=== PATIENT | male | born 1950 | race Caucasian/White ===

== ENCOUNTER 2016-11-03 10:22 | Observation (INO) | payer BC ==
[2016-10-26 11:49] LABS: HEMOGLOBIN 13.7 g/dL (13.6-17.8)
[2016-10-26 12:03] LABS: BUN (BLOOD UREA NITROGEN) 15 MG/DL (6-23); CALCIUM, SERUM 8.9 MG/DL (8.5-10.4); CHLORIDE, SERUM 106 MMOL/L (96-112); CO2 (CARBON DIOXIDE) 29 MMOL/L (24-34); CREATININE 1.04 MG/DL (0.70-1.30); GFR AFRICAN AMERICAN 86 ML/MIN (>=60); GFR NON AFRICAN AMERICAN 74 ML/MIN (>=60); GLUCOSE, SERUM 128 MG/DL (60-99); POTASSIUM, SERUM 4.4 MMOL/L (3.5-5.3); SODIUM, SERUM 142 MMOL/L (135-148)
--- NOTE | ~2016-11-03 | CN ---
Consultation Report [facility] [address] [place]. [address] NAME: MAGDIEL JAMES : 50 STATUS : ADM Richelle PAT#: [id number] AGE: 66 ADM/REG DATE : 11/03/16 MR#: [id number] REPORT SERV DATE: 11/03/16 DICTATED BY: LEXY STEELE DATE: 11/03/16 REPORT STATUS : Draft TRANSCRIBED BY: MODL DATE: 11/03/16 CARDIOLOGY CONSULTATION DATE OF CONSULTATION: REASON FOR CONSULTATION: Intraoperative EKG changes. HISTORY OF PRESENT ILLNESS: The patient is a 66-year-old male without known coronary artery disease, who today underwent orthopedic spine surgery with minimally invasive multilevel laminectomy of the lumbosacral spine. Intraoperatively at approximately 1341 hours, the patient developed ST-segment elevation and what is listed as lead II of his telemetry monitoring. No complications during the procedure. On return to the postanesthesia care unit, the patient had a normal telemetry and EKG. He subsequently developed transient ST- segment elevation at 1534 hours again in similar lead II configuration. No ST elevation in the other monitor lead. By 1602 hours, ST-segment changes had resolved. The patient was recovering from general anesthetic, was sluggish, but responsive and denied chest pain. The patient currently is pain-free. A 12-lead EKG is unremarkable. Cardiac enzymes including troponin and CK-MB are negative postoperatively. As the patient remains significantly sedated, majority of history is taken from the medical record and from interview with the patient's by telephone. PAST MEDICAL HISTORY: 1. Degenerative disk disease with chronic pain. 2. Hypertension. 3. Osteoarthritis. 4. History of cardiac murmur. ALLERGIES: AMLODIPINE, CRESTOR, HYDROCHLOROTHIAZIDE, METHYLPREDNISOLONE, METOPROLOL, PRAVASTATIN, REQUIP, SIMVASTATIN - REACTIONS TO THESE MEDICATIONS ARE UNKNOWN. PAST SURGICAL HISTORY: Previous lumbar laminectomy of L4-L5 in 2012, bowel resection, previous umbilical hernia, previous treatment for deviated septum, previous orthopedic surgery of the right shoulder, previous ventral hernia repair, and previous reversal of colostomy. FAMILY HISTORY: Notable for cardiovascular disease and myocardial infarction in multiple relatives in older age. SOCIAL HISTORY: The patient medically disabled due to chronic pain syndrome. No past history of tobacco or illicit drug use. REVIEW OF SYSTEMS: Unobtainable at the time of consultation. Previously, negative per review of admission Consultation Report [facility] [address] [place]. [address] NAME: MAGDIEL JAMES : 50 STATUS : ADM Richelle PAT#: [id number] AGE: 66 ADM/REG DATE : 11/03/16 MR#: [id number] REPORT SERV DATE: 11/03/16 DICTATED BY: LEXY STEELE DATE: 11/03/16 REPORT STATUS : Draft TRANSCRIBED BY: GUILLAUME DATE: 11/03/16 history and physical except for back pain complaints. PHYSICAL EXAMINATION: VITALS: Blood pressure 128/74, pulse 76, respirations 16 and unlabored, saturating 99% on 2 liters nasal cannula. Weight 168 pounds . GENERAL: Elderly male in no acute distress, somnolent, arousable, able to nod to simple questions. Unable to answer complex questions secondary to sedation. HEENT: Normal. NECK: Supple, no JVD or bruit, normal carotid upstroke bilaterally, no thyromegaly. LUNGS: Clear to auscultation and percussion. No wheezes, rales or rhonchi. No use of accessory muscles. CARDIOLOGY: Regular rhythm, normal S1, S2, no thrill, no murmur, rubs or gallops, normal PMI. ABDOMEN: Bowel sounds positive, soft, nontender, and nondistended. No masses or aortic bruits. No hepatosplenomegaly or hepatojugular reflux. EXTREMITIES: No edema. Normal pulses. No clubbing or cyanosis. SKIN: Warm and dry, no significant rash. NEUROLOGIC: Alert and oriented x 3. Appropriate mood. DIAGNOSTIC DATA: EKG: Postoperative EKG, sinus rhythm, normal EKG. Telemetry - EKG changes with times as described above in the history of present illness. Laboratories: Unremarkable with normal CK-MB and troponin postoperatively. Data: Echocardiogram report on 10/15/2016 normal echocardiogram, described as a "suboptimal quality study." Ejection fraction normal. No regional wall motion abnormalities described. IMPRESSION: Intermittent transient ST-segment elevation in a single lead noted intraoperatively and in the postanesthesia care unit. The patient is asymptomatic at this time. At the time of ST elevation in the postanesthesia care unit, the patient denied chest pain. Initial cardiac enzymes negative. Multiple cardiac risk factors. We will arrange for serial cardiac enzymes. The patient will be admitted to a cardiac telemetry floor for continuous telemetry observation and monitoring. A recurrent telemetry changes with EKG deviation, electrocardiogram will be performed emergently. No plan for anticoagulation at this time due to surgery only several hours ago involving the lumbosacral spine. Previous intolerance to beta-ced, specifically metoprolol. Unclear what this is. At this time, the patient has no significant hypertension or tachycardia. We will defer adding beta- ced for now. Initiation of aspirin if acceptable with Orthopedic/Spine Surgery. Thank you for the opportunity to see the patient in consultation. We will continue to follow the patient with you. Consultation Report [address] [place]. [address] NAME: MAGDIEL JAMES : 50 STATUS : ADM Richelle PAT#: [id number] AGE: 66 ADM/REG DATE : 11/03/16 MR#: [id number] REPORT SERV DATE: 11/03/16 DICTATED BY: LEXY STEELE DATE: 11/03/16 REPORT STATUS : Draft TRANSCRIBED BY: MODGin DATE: 11/03/16 CSL/GUILLAUME Erick Steele M.D. / [id number] CC: Olegario Stone II, ALEX G
--- NOTE | ~2016-11-03 | OP ---
Record Of Operation [facility] [address] [place]. [address] NAME: MAGDIEL JAMES : 50 STATUS : DIS Richelle PAT#: [id number] AGE: 66 ADM/REG DATE : 11/03/16 MR#: [id number] REPORT SERV DATE: 11/05/16 DICTATED BY: KALPANA CRUZ II DATE: 11/05/16 REPORT STATUS : Draft TRANSCRIBED BY: MODL DATE: 11/05/16 DATE OF PROCEDURE: 11/03/2016 PREOPERATIVE DIAGNOSES: 1. Left lower extremity radiculopathy. 2. L1-2, L2-3 stenosis with significant spondylosis and discogenic back pain. 3. Adjacent segment degeneration with history of successful pain relief with previous decompression fusion by Dr. Neumann. 4. Low back pain. POSTOPERATIVE DIAGNOSES: 1. Left lower extremity radiculopathy. 2. L1-2, L2-3 stenosis with significant spondylosis and discogenic back pain. 3. Adjacent segment degeneration with history of successful pain relief with previous decompression fusion by Dr. Neumann. 4. Low back pain. PROCEDURE: 1. Laminectomy, L1-L2. 2. Revision laminectomy, L2-L3. 3. Use of the microscope and stereotactic spinal imaging. SURGEON: Dr. Kalpana Cruz. FLUIDS: 950 mL LR. ESTIMATED BLOOD LOSS: 30 mL. DRAINS: One drain. COMPLICATIONS: None. PREOPERATIVE HISTORY: This is a friendly 66-year-old gentleman, who did well following his surgery several years ago with Dr. Neumann. He had a L2-3 decompression and fusion with facet screws placed through the facets of L2-L3 into the L3 pedicles. He is now having adjacent segment degeneration with significant stenosis at L1-2 and also degenerative disk disease at L3-4. We discussed the pros and cons of surgery. Given his significant back pain and leg pain, we discussed facetectomy and fusion. This was denied by his insurance. The family and patient were asked if they wished for us to appeal the surgery or proceed with what had been approved, which was the laminectomy. The patient's family said that the leg pain was severe and they wished to avoid the prolonged appeal process and simply go with the laminectomy in hopes that it would adequately decrease the leg pain and then revisit the idea of fusion as needed. DESCRIPTION OF PROCEDURE: After informed consent was obtained, the patient was brought to the operating room at his request and general anesthesia achieved. He was placed in the Record Of Operation [address] [address] NAME: MAGDIEL JAMES : 50 STATUS : DIS Richelle PAT#: [id number] AGE: 66 ADM/REG DATE : 11/03/16 MR#: [id number] REPORT SERV DATE: 11/05/16 DICTATED BY: KALPANA CRUZ II DATE: 11/05/16 REPORT STATUS : Draft TRANSCRIBED BY: GUILLAUME DATE: 11/05/16 prone position. The back was prepped and draped in a sterile fashion. The stereotactic pin was placed into the right iliac crest. The intraoperative CT scan completed. The minimally invasive incision was now performed and stereotactic guidance used to assist with placement of the quadrant retractor at L1-2 and L2-3. The microscope was brought into place and under microscopic visualization, the laminectomy was performed at L1-L2. We were able to resect approximately 50% of the facet joint at L1-2. We also then removed the central stenosis with removal of the ligamentum flavum. Care was taken not to over resect the left L1-L2 joint, but to adequately decompress the L2 nerve root. The ligamentum flavum and the arthritic facet appeared to be compressing both the sac and the L2 nerve root. At this point, the nerve roots were adequately decompressed. Next, we worked down to the L2-L3 region. There was some degree of recurrent stenosis at this level. This appeared to be compressing the L3 nerve root as well. We then removed portions of this facet to adequately decompress the canal and the lateral recess. At this point, the facet screw was noted to be partially loose. This facet did not appear to be fully fused. At this point, I did not feel that revision fusion was necessary at this point. I overall feel that the patient will likely want to revisit the concept and the appeals process for fusion to help decrease his back pain and also to potentially help leg pain if it redevelops. At this point, irrigation was performed and a drain placed since we were planning on keeping him overnight for observation. At this point, the standard closure was performed. The patient was extubated and transferred to PACU in stable condition. Interestingly, Dr. Steele called me shortly after he was transferred to the recovery room. There apparently had been some ST elevation during the surgery. I was not made aware of this, but apparently the patient was stable, but it was simply noted. For completeness sake, it appears that Cardiology was consult, which was completely appropriate, and he and I discussed the plan for intervention from a cardiac standpoint as needed. His ST-elevation had essentially resolved itself in the recovery room, but he again agreed with overnight observation and telemetry. YASMEEN/GUILLUAME Kalpana Cruz II, M.D. / [id number] CC: Olegario Stone II, ALEX G RICKEY HUTCHESON, MD
[~2016-11-03 10:22] MED LIST: CLONAZEPAM PO; LOTE40 PO; MOTRIN IB200 MG PO; OXYCODONE PO
[2016-11-03 16:11] LABS: CPK 106 U/L (0-200); TROPONIN I <0.02 NG/ML (<0.05)
[2016-11-03 16:12] LABS: CK-MB 1.8 NG/ML
[2016-11-04 04:52] LABS: BUN (BLOOD UREA NITROGEN) 18 MG/DL (6-23); CALCIUM, SERUM 8.9 MG/DL (8.5-10.4); CHLORIDE, SERUM 101 MMOL/L (96-112); CO2 (CARBON DIOXIDE) 26 MMOL/L (24-34); CREATININE 1.09 MG/DL (0.70-1.30); GFR AFRICAN AMERICAN 82 ML/MIN (>=60); GFR NON AFRICAN AMERICAN 70 ML/MIN (>=60); GLUCOSE, SERUM 148 MG/DL (60-99); POTASSIUM, SERUM 4.4 MMOL/L (3.5-5.3); SODIUM, SERUM 135 MMOL/L (135-148); TROPONIN I <0.02 NG/ML (<0.05)
[2016-11-04] MEDS ORDERED: MSCONTIN PO (14:29)
[2016-11-04] MEDS ORDERED: V2 PO (14:30)
[2017-01-04] MEDS ORDERED: KLONO2 PO (14:18)
[2017-01-04] MEDS ORDERED: KLONO1 PO (14:19)
[2017-01-09] MEDS ORDERED: V5 PO (12:24)
[2017-01-09] MEDS ORDERED: ROXICODONE15 MG PO (12:24)
[2017-01-09] MEDS ORDERED: MSCONTIN PO (12:25)
== END 2016-11-04 15:41 | disposition home or self-care (01) ==
LOC: SDC/OF 10:22 → 5NO 18:54
PROVIDERS: Internal Medicine Cardiovascular Disease; Orthopaedic Surgery
PROC: 00JV0ZZ Inspection of Spinal Cord, Open Approach (ICD-10-PCS; principal; 2016-11-03 12:15)
DX: M48.06 Spinal stenosis, lumbar region (principal); M47.26 Other spondylosis with radiculopathy, lumbar region; M51.16 Intervertebral disc disorders with radiculopathy, lumbar region; G25.81 Restless legs syndrome; I10 Essential (primary) hypertension; M19.90 Unspecified osteoarthritis, unspecified site; Z88.5 Allergy status to narcotic agent; Z88.1 Allergy status to other antibiotic agents; Z88.8 Allergy status to other drugs, medicaments and biological substances; Z90.49 Acquired absence of other specified parts of digestive tract; Z98.890 Other specified postprocedural states
CPT/HCPCS: 78452; 80048; 82550; 82553; 82962; 83735; 84484; 85014; 85018; 87641; 88304; 88311; 93005; 93017; 93306; 96374; 96376; A9270-GY; A9502; G0378; J0153; J0690; J1030; J2250; J2370; J2405; J2710; J3010